=== PATIENT | female | born 1950 | race African-American/Black ===

== ENCOUNTER → 2018-04-12 | Outpatient (CLI) | payer MEDICARE, MEDICAID ==
[~2018-04-12] MED LIST: REGADENOSON 0.4 MG/5 ML IV ONE
== END | disposition home or self-care (01) ==
LOC: NM 08:00
PROVIDERS: ATTEND Internal Medicine Cardiovascular Disease
DX: R06.00 Dyspnea, unspecified (principal); R94.31 Abnormal electrocardiogram [ECG] [EKG]
CPT/HCPCS: 78452; 93017; A9500; J2785

== ENCOUNTER → 2022-04-06 | Outpatient (CLI) | payer MEDICARE, MEDICAID | END | disposition home or self-care (01) | LOC: RAD 08:11 | PROVIDERS: ATTEND Internal Medicine Nephrology | DX: Z01.818 Encounter for other preprocedural examination (principal); M47.814 Spondylosis without myelopathy or radiculopathy, thoracic region | CPT/HCPCS: 71045 ==

== ENCOUNTER 2022-04-15 05:16 | Inpatient (IN) | payer MEDICARE, MEDICAID ==
[~2022-04-15] VITALS: Ht 170.2 cm; Wt 94.4 kg
[2022-04-15] VITALS (57 sets, daily range): BP systolic 110–208; BP diastolic 41–86
[2022-04-15] MEDS ORDERED: LACTATED RINGERS 1,000 ML IV SCH (06:15)
[2022-04-15] MEDS ORDERED: TRANEXAMIC ACID 1,000 MG/10 ML IV NR (06:30)
[2022-04-15] MEDS ORDERED: ROCURONIUM BROMIDE 10MG/ML VIAL 5ML IV ONE ×2 (06:36→10:41)
[2022-04-15] MEDS ORDERED: PHENYLEPHRINE HCL 10 MG/ML 1ML (IV VIAL) IV ONE (06:37)
[2022-04-15] MEDS ORDERED: LIDOCAINE HCL 1% 10 MG/ML 10ML VIAL ONE (06:37)
[2022-04-15] MEDS ORDERED: FENTANYL CITRATE/PF 50MCG/ML 2ML VIAL ONE ×2 (06:37→10:07)
[2022-04-15] MEDS ORDERED: PROPOFOL 200MG/20ML VIAL IV ONE (06:37)
[2022-04-15] MEDS ORDERED: GENTAMICIN SULF 40MG/ML 2ML VIAL ONE ×2 (06:48→09:40)
[2022-04-15] MEDS ORDERED: THROMBIN (BOVINE) 5000 UNITS/VIAL TOP ONE (06:48)
[2022-04-15] MEDS ORDERED: LIDOCAINE HCL/EPINEPHRINE 1%-EPI 1:100,000 20 ML VIAL ONE ×2 (06:48→09:25)
[2022-04-15] MEDS ORDERED: VERA240C3 PO (08:45)
[2022-04-15] MEDS ORDERED: METH2.5T PO (08:45)
[2022-04-15] MEDS ORDERED: CARI250T PO (08:45)
[2022-04-15] MEDS ORDERED: ATOR20TA65 PO (08:45)
[2022-04-15] MEDS ORDERED: PANT40TA51 PO (08:45)
[2022-04-15] MEDS ORDERED: FOLI-43 PO (08:45)
[2022-04-15] MEDS ORDERED: ASPI-1497 PO (08:45)
[2022-04-15] MEDS ORDERED: ZOLP10TA2 PO (08:45)
[2022-04-15] MEDS ORDERED: ADAL40PE SQ (08:45)
[2022-04-15] MEDS ORDERED: FERR325T6 PO (08:45)
[2022-04-15] MEDS ORDERED: GABA800T PO (08:45)
[2022-04-15] MEDS ORDERED: HYDR12.54 PO (08:45)
[2022-04-15] MEDS ORDERED: CHOL500010 PO (08:47)
[2022-04-15] MEDS ORDERED: GLYCOPYRROLATE 0.2 MG/ML 2ML VIAL ONE ×3 (10:27→11:01)
[2022-04-15] MEDS ORDERED: NEOSTIGMINE METHYLSULFATE 1MG/ML 10 ML VIAL ONE (11:00)
[2022-04-15] MEDS: DEXT 5%/LACTATED RINGERS 1,000 ML IV SCH ×2 (11:15→21:05)
[2022-04-15] MEDS ORDERED: HYDRALAZINE 20MG/ML VIAL ONE (11:17)
[2022-04-15] MEDS: MORPHINE SULFATE 4 MG/ML CPJ (NOT FOR IM USE) IV PRN ×4 (11:57→21:38)
[2022-04-15] MEDS: INSULIN LISPRO 100 UNITS/ML SUBCUT SCH ×2 (12:00→17:38)
[2022-04-15] MEDS: NICARDIPINE 100 MG in SODIUM CHLORIDE 0.9% 60 ML IV PRN ×2 (12:07→18:01)
[2022-04-15] MEDS: BLOOD SUGAR DIAGNOSTIC STRIP TEST SCH ×2 (12:38→17:14)
[2022-04-15] MEDS: DEXAMETHASONE 4MG/ML 1ML VIAL IV SCH ×2 (12:38→17:39)
[2022-04-15] MEDS ORDERED: DEXTROSE 50% WATER 50ML SYRINGE IV PRN (12:45)
[2022-04-15] MEDS: CEFAZOLIN 1000MG PREMIX 50 ML IV SCH ×2 (13:43→21:05)
[2022-04-15] MEDS ORDERED: CEFAZOLIN SODIUM 1000MG/VIAL IV SCH (14:00)
[2022-04-15] MEDS: ONDANSETRON HCL 4MG/2ML INJ IV PRN (14:06)
[2022-04-16] VITALS (104 sets, daily range): BP systolic 51–179; BP diastolic 40–74
[2022-04-16] MEDS: BLOOD SUGAR DIAGNOSTIC STRIP TEST SCH ×4 (00:11→18:15)
[2022-04-16] MEDS: MORPHINE SULFATE 4 MG/ML CPJ (NOT FOR IM USE) IV PRN ×3 (00:38→12:05)
[2022-04-16] MEDS: NICARDIPINE 100 MG in SODIUM CHLORIDE 0.9% 60 ML IV PRN ×3 (00:57→19:33)
[2022-04-16] MEDS: DEXAMETHASONE 4MG/ML 1ML VIAL IV SCH ×3 (01:00→13:16)
[2022-04-16] MEDS: CEFAZOLIN 1000MG PREMIX 50 ML IV SCH (06:04)
[2022-04-16] MEDS: INSULIN LISPRO 100 UNITS/ML SUBCUT SCH ×4 (06:40→18:18)
[2022-04-16] MEDS ORDERED: NALOXONE HCL 0.4MG/ML VIAL IV PRN (07:45)
[2022-04-16] MEDS: PANTOPRAZOLE SODIUM 40 MG/VIAL IV SCH (09:38)
[2022-04-16] MEDS: DEXT 5%/LACTATED RINGERS 1,000 ML IV SCH (09:42)
[2022-04-16] MEDS: ONDANSETRON HCL 4MG/2ML INJ IV PRN (09:42)
[2022-04-16] MEDS ORDERED: DIAZEPAM 5 MG TABLET PO NR (10:00)
[2022-04-16 10:37] LABS: BASOPHILS % 0.2 % (0.0-2.0); EOSINOPHILS % 0.2 % (0.0-5.0); HEMATOCRIT. 41.3 % (36.0-48.0); HEMOGLOBIN. 13.2 g/dL (12.0-16.0); LYMPHOCYTES % 10.2 % (20.0-50.0); MEAN CORPUSCULAR HEMOGLOBIN 29.6 pg (28.0-32.0); MEAN CORPUSCULAR VOLUME 92.4 fL (81.0-99.0); MEAN PLATELET VOLUME 8.9 fl (7.4-10.4); MONOCYTES % 2.3 % (2.0-8.0); NEUTROPHILS % 87.1 % (40.0-76.0); PLATELET 277 x1000/uL (130-400); RED BLOOD CELL COUNT 4.47 mill/uL (4.2-5.4)
[2022-04-16 10:45] LABS: CHLORIDE 109 mEq/L (98-107)
[2022-04-16] MEDS ORDERED: MEDICATION NOT ON FORMULARY EA (Hydrochlorothiazide 1 TAB) PO SCH (21:00)
[2022-04-16] MEDS ORDERED: METHOTREXATE SODIUM 2 . 5MG TABLET PO SCH (21:00)
[2022-04-16] MEDS ORDERED: VERAPAMIL HCL PO SCH (21:00)
[2022-04-16] MEDS: ATORVASTATIN CALCIUM 20MG TABLET PO SCH (21:56)
[2022-04-16] MEDS: ZOLPIDEM TARTRATE 5MG TABLET PO PRN (21:56)
[2022-04-17] VITALS (97 sets, daily range): BP systolic 67–190; BP diastolic 34–124
[2022-04-17] MEDS: BLOOD SUGAR DIAGNOSTIC STRIP TEST SCH ×4 (00:07→17:07)
[2022-04-17] MEDS: DILTIAZEM HCL 90MG TABLET PO SCH ×4 (00:13→17:07)
[2022-04-17] MEDS: DEXT 5%/LACTATED RINGERS 1,000 ML IV SCH ×3 (03:15→21:43)
[2022-04-17] MEDS: INSULIN LISPRO 100 UNITS/ML SUBCUT SCH ×4 (06:00→17:08)
[2022-04-17] MEDS: PANTOPRAZOLE 40MG DR TABLET PO SCH (06:46)
[2022-04-17] MEDS: PANTOPRAZOLE SODIUM 40 MG/VIAL IV SCH (08:24)
[2022-04-17] MEDS: FOLIC ACID 1MG TABLET PO SCH (08:24)
[2022-04-17] MEDS: FERROUS SULFATE 325MG TABLET PO SCH (08:24)
[2022-04-17] MEDS: HYDROCHLOROTHIAZIDE 12.5MG CAPSULE PO SCH (08:25)
[2022-04-17] MEDS: GABAPENTIN 400MG CAPSULE PO SCH ×3 (08:25→17:06)
[2022-04-17] MEDS ORDERED: MEDICATION NOT ON FORMULARY EA (Ferrous Sulfate 1 TAB) PO SCH (09:00)
[2022-04-17] MEDS ORDERED: MEDICATION NOT ON FORMULARY EA (Gabapentin (Neurontin) 1 TAB) PO SCH (09:00)
[2022-04-17] MEDS ORDERED: ADALIMUMAB SQ SCH (09:00)
[2022-04-17] MEDS ORDERED: MEDICATION NOT ON FORMULARY EA (Cholecalciferol (Vitamin D3) (Vitamin D3) 1 TAB) PO SCH (09:00)
[2022-04-17] MEDS: NICARDIPINE 100 MG in SODIUM CHLORIDE 0.9% 60 ML IV PRN (09:46)
[2022-04-17] MEDS: CHOLECALCIFEROL (D3) 1000 UNIT TABLET PO SCH (10:17)
[2022-04-17] MEDS: ACETAMINOPHEN 325MG TABLET PO PRN (15:03)
[2022-04-17] MEDS ORDERED: CLONIDINE 0.1MG TABLET PO PRN (16:30)
[2022-04-17] MEDS ORDERED: FUROSEMIDE 40MG/4ML VIAL IVP NR (16:30)
[2022-04-17] MEDS ORDERED: METOPROLOL SUCCINATE 50MG ER TABLET PO SCH (17:00)
[2022-04-17] MEDS: ATORVASTATIN CALCIUM 20MG TABLET PO SCH (21:42)
[2022-04-17] MEDS: ZOLPIDEM TARTRATE 5MG TABLET PO PRN (21:42)
[2022-04-17] MEDS: METOPROLOL TARTRATE 50MG TABLET PO SCH (21:42)
[2022-04-18] VITALS (44 sets, daily range): BP systolic 95–154; BP diastolic 44–87
[2022-04-18] MEDS: IPRATROPIUM BROMIDE (0.02%) 0.5MG/2.5ML NEB HHN SCH ×4 (00:13→20:55)
[2022-04-18] MEDS: ALBUTEROL (0.083%) 2.5MG/3ML NEB HHN SCH ×4 (00:13→20:55)
[2022-04-18] MEDS ORDERED: DEXTROSE 50% WATER 50ML SYRINGE IV PRN (00:30)
[2022-04-18] MEDS: BLOOD SUGAR DIAGNOSTIC STRIP TEST SCH ×4 (06:11→20:34)
[2022-04-18] MEDS: DILTIAZEM HCL 90MG TABLET PO SCH ×4 (06:14→18:05)
[2022-04-18] MEDS: PANTOPRAZOLE 40MG DR TABLET PO SCH (06:14)
[2022-04-18] MEDS: INSULIN LISPRO 100 UNITS/ML SUBCUT SCH ×4 (06:15→21:00)
[2022-04-18] MEDS: CHOLECALCIFEROL (D3) 1000 UNIT TABLET PO SCH (08:02)
[2022-04-18] MEDS: GABAPENTIN 400MG CAPSULE PO SCH ×3 (08:02→18:05)
[2022-04-18] MEDS: FOLIC ACID 1MG TABLET PO SCH (08:02)
[2022-04-18] MEDS: FERROUS SULFATE 325MG TABLET PO SCH (08:02)
[2022-04-18] MEDS: METOPROLOL TARTRATE 50MG TABLET PO SCH ×2 (08:03→20:34)
[2022-04-18] MEDS: HYDROCHLOROTHIAZIDE 12.5MG CAPSULE PO SCH (08:03)
[2022-04-18 14:52] LABS: BASOPHILS % 0.3 % (0.0-2.0); HEMATOCRIT. 38.2 % (36.0-48.0); HEMOGLOBIN. 12.5 g/dL (12.0-16.0); LYMPHOCYTES % 11.1 % (20.0-50.0); MEAN CORPUSCULAR HEMOGLOBIN 29.8 pg (28.0-32.0); MEAN CORPUSCULAR VOLUME 91.1 fL (81.0-99.0); MEAN PLATELET VOLUME 8.4 fl (7.4-10.4); MONOCYTES % 6.1 % (2.0-8.0); NEUTROPHILS % 82.5 % (40.0-76.0); PLATELET 250 x1000/uL (130-400); RED BLOOD CELL COUNT 4.19 mill/uL (4.2-5.4); RED CELL DISTRIBUTION WIDTH 15.1 % (11.6-14.6)
[2022-04-18 15:10] LABS: CHLORIDE 106 mEq/L (98-107)
[2022-04-18] MEDS: ACETAMINOPHEN 325MG TABLET PO PRN (18:06)
[2022-04-18] MEDS ORDERED: FUROSEMIDE 40MG/4ML VIAL IVP NR (19:15)
[2022-04-18] MEDS ORDERED: POTASSIUM CHLORIDE 20MEQ TABLET SR PO NR (19:45)
[2022-04-18] MEDS: ATORVASTATIN CALCIUM 20MG TABLET PO SCH (20:34)
[2022-04-18] MEDS: ZOLPIDEM TARTRATE 5MG TABLET PO PRN (21:04)
[2022-04-19] VITALS: BP 141/63
[2022-04-19] MEDS: DILTIAZEM HCL 90MG TABLET PO SCH ×5 (00:53→20:54)
[2022-04-19 01:10] LABS: BG BASE EXCESS 3.7 mmol/L (-2.0-2.0); BG CARBOXYHEMOGLOBIN 0.2 % (0.5-1.5); BG DEOXYHEMOGLOBIN 5.5 % (0.0-5.0); BG FRACTION INSPIRED OXYGEN 40; BG HCO3 ACT 28.3 mmol/L (22.0-26.0); BG OXYGEN SATURATION 94.5 % (92.0-98.5); BG OXYHEMOGLOBIN 94.3 % (94.0-97.0); BG PCO2 42.6 mmHg (35.0-45.0); BG PO2 72.4 mmHg (75.0-100.0); BG SAMPLE SITE RIGHT RADIAL; BG TOTAL HEMOGLOBIN 12.6 g/dL (12.0-18.0); BG VENT MODE MASK - SIMPLE
[2022-04-19 04:00] VITALS: BP 114/55
[2022-04-19] MEDS: BLOOD SUGAR DIAGNOSTIC STRIP TEST SCH ×4 (06:20→20:44)
[2022-04-19 07:11] LABS: HEMOGLOBIN. 12.1 g/dL (12.0-16.0); MEAN CORPUSCULAR HEMOGLOBIN 29.7 pg (28.0-32.0); MEAN PLATELET VOLUME 8.8 fl (7.4-10.4); PLATELET 223 x1000/uL (130-400); RED BLOOD CELL COUNT 4.07 mill/uL (4.2-5.4); RED CELL DISTRIBUTION WIDTH 14.8 % (11.6-14.6)
[2022-04-19 08:00] VITALS: BP 121/59
[2022-04-19 08:02] LABS: CHLORIDE 107 mEq/L (98-107)
[2022-04-19] MEDS: INSULIN LISPRO 100 UNITS/ML SUBCUT SCH ×4 (08:10→20:44)
[2022-04-19] MEDS: ALBUTEROL (0.083%) 2.5MG/3ML NEB HHN SCH ×3 (08:18→21:07)
[2022-04-19] MEDS: IPRATROPIUM BROMIDE (0.02%) 0.5MG/2.5ML NEB HHN SCH ×3 (08:18→21:07)
[2022-04-19] MEDS ORDERED: METHOTREXATE SODIUM 2 . 5MG TABLET PO SCH (09:00)
[2022-04-19] MEDS: FOLIC ACID 1MG TABLET PO SCH (10:17)
[2022-04-19] MEDS: FUROSEMIDE 40MG/4ML VIAL IVP SCH (10:17)
[2022-04-19] MEDS: CHOLECALCIFEROL (D3) 1000 UNIT TABLET PO SCH (10:18)
[2022-04-19] MEDS: GABAPENTIN 400MG CAPSULE PO SCH ×3 (10:18→17:31)
[2022-04-19] MEDS: METOPROLOL TARTRATE 50MG TABLET PO SCH ×2 (10:18→20:54)
[2022-04-19] MEDS: PANTOPRAZOLE 40MG DR TABLET PO SCH (10:20)
[2022-04-19 12:00] VITALS: BP 107/41
[2022-04-19 13:56] LABS: PLATELET ESTIMATE NORMAL
[2022-04-19 16:00] VITALS: BP_SYST 124; BP_SYST 94; BP_DIAS 49; BP_DIAS 56
[2022-04-19 20:00] VITALS: BP 120/56
[2022-04-19] MEDS: ATORVASTATIN CALCIUM 20MG TABLET PO SCH (20:54)
[2022-04-19] MEDS: ZOLPIDEM TARTRATE 5MG TABLET PO PRN (20:59)
[2022-04-20] VITALS: BP 120/60
[2022-04-20] MEDS: ALBUTEROL (0.083%) 2.5MG/3ML NEB HHN SCH ×4 (01:18→20:52)
[2022-04-20] MEDS: IPRATROPIUM BROMIDE (0.02%) 0.5MG/2.5ML NEB HHN SCH ×4 (01:18→20:53)
[2022-04-20 04:00] VITALS: BP 132/66
[2022-04-20] MEDS: DILTIAZEM HCL 90MG TABLET PO SCH ×3 (05:32→21:43)
[2022-04-20] MEDS: PANTOPRAZOLE 40MG DR TABLET PO SCH (06:28)
[2022-04-20] MEDS: INSULIN LISPRO 100 UNITS/ML SUBCUT SCH ×4 (06:32→21:46)
[2022-04-20] MEDS: BLOOD SUGAR DIAGNOSTIC STRIP TEST SCH ×4 (06:32→20:33)
[2022-04-20 08:18] VITALS: BP 116/54
[2022-04-20] MEDS: METOPROLOL TARTRATE 50MG TABLET PO SCH ×2 (09:00→21:43)
[2022-04-20] MEDS: FUROSEMIDE 40MG/4ML VIAL IVP SCH (09:20)
[2022-04-20] MEDS: GABAPENTIN 400MG CAPSULE PO SCH ×3 (09:25→17:15)
[2022-04-20] MEDS: FOLIC ACID 1MG TABLET PO SCH (09:25)
[2022-04-20] MEDS: CHOLECALCIFEROL (D3) 1000 UNIT TABLET PO SCH (09:26)
[2022-04-20 12:14] VITALS: BP 112/56
[2022-04-20 16:03] VITALS: BP 137/65
[2022-04-20] MEDS: LACTULOSE 20G/30ML UDC PO SCH ×2 (17:15→21:42)
[2022-04-20] MEDS: ATORVASTATIN CALCIUM 20MG TABLET PO SCH (21:42)
[2022-04-20] MEDS: ZOLPIDEM TARTRATE 5MG TABLET PO PRN (21:51)
[2022-04-20] MEDS: ACETAMINOPHEN 325MG TABLET PO PRN (21:52)
[2022-05-03] MEDS ORDERED: ADALIMUMAB SQ SCH (09:00)
== END 2022-04-20 22:03 | DRG 471 ==
LOC: OR 05:16 → MICUSO 05:17 → 7WST 04-18 10:45
PROVIDERS: ADMIT Neurological Surgery; ATTEND Neurological Surgery
PROC: 0RG10A0 Fusion of Cervical Vertebral Joint with Interbody Fusion Device, Anterior Approach, Anterior Column, Open Approach (ICD-10-PCS; principal; 2022-04-15)
PROC: 0RB30ZZ Excision of Cervical Vertebral Disc, Open Approach (ICD-10-PCS; 2022-04-15)
PROC: 01N10ZZ Release Cervical Nerve, Open Approach (ICD-10-PCS; 2022-04-15)
PROC: 4A11X4G Monitoring of Peripheral Nervous Electrical Activity, Intraoperative, External Approach (ICD-10-PCS; 2022-04-15)
DX: M48.02 Spinal stenosis, cervical region (principal); G82.50 Quadriplegia, unspecified; J96.01 Acute respiratory failure with hypoxia; M50.021 Cervical disc disorder at C4-C5 level with myelopathy; M47.12 Other spondylosis with myelopathy, cervical region; J81.1 Chronic pulmonary edema; K44.9 Diaphragmatic hernia without obstruction or gangrene; M06.9 Rheumatoid arthritis, unspecified; Z20.822 Contact with and (suspected) exposure to COVID-19; I10 Essential (primary) hypertension; E78.5 Hyperlipidemia, unspecified; E11.65 Type 2 diabetes mellitus with hyperglycemia; R26.89 Other abnormalities of gait and mobility; M47.22 Other spondylosis with radiculopathy, cervical region; R13.10 Dysphagia, unspecified; E11.42 Type 2 diabetes mellitus with diabetic polyneuropathy; E87.70 Fluid overload, unspecified; I16.0 Hypertensive urgency; E66.9 Obesity, unspecified; Z79.4 Long term (current) use of insulin; Z82.49 Family history of ischemic heart disease and other diseases of the circulatory system; Z68.32 Body mass index [BMI] 32.0-32.9, adult
CPT/HCPCS: 36415; 36600; 71045; 72040; 72141; 76000; 80048; 82375; 82805; 82962; 83036; 83880; 85025; 86850; 86900; 87426; 88304; 88311; 92610; 94640; 95925; 95926; 95928; 95929; 97116; 97162; 97166; 97530; C9113; C9803; J0360; J0690; J1100; J1580; J1815; J1940; J2270; J2370; J2405; J2704; J2710; J3010; J3490; J7050; J7121; J8610; L0172; L3908; C1713

== ENCOUNTER 2022-04-20 22:00 | Inpatient (IN) | payer MEDICARE, MEDICAID ==
[~2022-04-20] VITALS: Ht 170.2 cm; Wt 94.4 kg
[2022-04-20 20:00] VITALS: BP 143/80
[2022-04-20 22:00] VITALS: BP 143/80
[~2022-04-20 22:00] MED LIST changes: +ADAL40PE SQ; +ASPI-1497 PO; +ATOR20TA65 PO; +CARI250T PO; +CHOL500010 PO; +FERR325T6 PO; +FOLI-43 PO; +GABA800T PO; +HYDR12.54 PO; +METH2.5T PO; +PANT40TA51 PO; -REGADENOSON 0.4 MG/5 ML IV ONE; +VERA240C3 PO; +ZOLP10TA2 PO
[2022-04-20] MEDS ORDERED: DEXTROSE 50% WATER 50ML SYRINGE IV PRN (22:45)
[2022-04-20] MEDS ORDERED: CLONIDINE 0.1MG TABLET PO PRN (23:15)
[2022-04-20] MEDS ORDERED: NALOXONE HCL 0.4 MG/ML 1ML VIAL IV PRN (23:15)
[2022-04-20] MEDS ORDERED: ACETAMINOPHEN 325MG TABLET PO PRN (23:15)
[2022-04-20] MEDS ORDERED: ONDANSETRON HCL 4MG/2ML INJ IV PRN (23:15)
[2022-04-21] MEDS: ALBUTEROL (0.083%) 2.5MG/3ML NEB HHN SCH ×2 (01:35→14:06)
[2022-04-21] MEDS: IPRATROPIUM BROMIDE (0.02%) 0.5MG/2.5ML NEB HHN SCH ×2 (01:35→14:05)
[2022-04-21 03:08] LABS: CLARITY URINE CLEAR (CLEAR); COLOR URINE YELLOW (YELLOW); KETONES URINE NEGATIVE (NEGATIVE); LEUKOCYTE ESTERASE URINE NEGATIVE (NEGATIVE); NITRITE URINE NEGATIVE (NEGATIVE); OCCULT BLOOD URINE 1+ (NEGATIVE); PROTEIN URINE NEGATIVE (NEGATIVE); SPECIFIC GRAVITY URINE 1.009 (1.005-1.030); UROBILINOGEN URINE 0.2 E.U./dL (0.2-1.0)
[2022-04-21] MEDS ORDERED: BLOOD SUGAR DIAGNOSTIC STRIP TEST SCH (06:30)
[2022-04-21] MEDS: PANTOPRAZOLE 40MG DR TABLET PO SCH (06:38)
[2022-04-21] MEDS: DILTIAZEM HCL 90MG TABLET PO SCH ×3 (06:38→22:28)
[2022-04-21 07:02] LABS: BASOPHILS % 0.4 % (0.0-2.0); EOSINOPHILS % 0.7 % (0.0-5.0); HEMATOCRIT. 38.7 % (36.0-48.0); HEMOGLOBIN. 12.9 g/dL (12.0-16.0); LYMPHOCYTES % 24.5 % (20.0-50.0); MEAN CORPUSCULAR HEMOGLOBIN 30.4 pg (28.0-32.0); MEAN CORPUSCULAR VOLUME 91.1 fL (81.0-99.0); MEAN PLATELET VOLUME 8.6 fl (7.4-10.4); MONOCYTES % 8.9 % (2.0-8.0); NEUTROPHILS % 65.5 % (40.0-76.0); PLATELET 240 x1000/uL (130-400); RED BLOOD CELL COUNT 4.24 mill/uL (4.2-5.4); RED CELL DISTRIBUTION WIDTH 14.3 % (11.6-14.6)
[2022-04-21 08:00] VITALS: BP 126/74
[2022-04-21] MEDS: FOLIC ACID 1MG TABLET PO SCH (08:19)
[2022-04-21] MEDS: METOPROLOL TARTRATE 25MG TABLET PO SCH ×2 (08:26→22:28)
[2022-04-21] MEDS: CHOLECALCIFEROL (D3) 1000 UNIT TABLET PO SCH (08:27)
[2022-04-21] MEDS ORDERED: GABAPENTIN 300MG CAPSULE PO SCH (09:00)
[2022-04-21] MEDS ORDERED: INSULIN LISPRO 100 UNITS/ML SUBCUT SCH (09:00)
[2022-04-21] MEDS ORDERED: GABAPENTIN 100MG CAPSULE PO NR (09:00)
[2022-04-21] MEDS ORDERED: FUROSEMIDE 40MG/4ML VIAL IVP SCH (09:00)
[2022-04-21 09:54] LABS: CHLORIDE 105 mEq/L (98-107)
[2022-04-21] MEDS: GABAPENTIN 400MG CAPSULE PO SCH ×2 (13:01→18:50)
[2022-04-21] MEDS: HYDROCODONE/ACETAMINOPHEN 5/325MG TABLET PO PRN (13:02)
[2022-04-21] MEDS ORDERED: POTASSIUM CHLORIDE 20MEQ TABLET SR PO NR (15:15)
[2022-04-21] MEDS ORDERED: ALBUTEROL (0.083%) 2.5MG/3ML NEB HHN PRN (16:15)
[2022-04-21] MEDS ORDERED: IPRATROPIUM BROMIDE (0.02%) 0.5MG/2.5ML NEB HHN PRN (16:15)
[2022-04-21 20:00] VITALS: BP 138/75
[2022-04-21] MEDS: POTASSIUM CHLORIDE 10MEQ TABLET SR PO SCH (22:27)
[2022-04-21] MEDS: ATORVASTATIN CALCIUM 20MG TABLET PO SCH (22:29)
[2022-04-22] MEDS: HYDROCODONE/ACETAMINOPHEN 5/325MG TABLET PO PRN ×3 (02:31→15:55)
[2022-04-22] MEDS: DILTIAZEM HCL 90MG TABLET PO SCH ×3 (06:44→22:00)
[2022-04-22] MEDS: PANTOPRAZOLE 40MG DR TABLET PO SCH (06:44)
[2022-04-22 06:58] LABS: BASOPHILS % 0.1 % (0.0-2.0); EOSINOPHILS % 1.4 % (0.0-5.0); HEMATOCRIT. 37.9 % (36.0-48.0); HEMOGLOBIN. 12.4 g/dL (12.0-16.0); LYMPHOCYTES % 31.5 % (20.0-50.0); MEAN CORPUSCULAR HEMOGLOBIN 29.8 pg (28.0-32.0); MEAN CORPUSCULAR VOLUME 91.2 fL (81.0-99.0); MEAN PLATELET VOLUME 8.7 fl (7.4-10.4); MONOCYTES % 8.8 % (2.0-8.0); NEUTROPHILS % 58.2 % (40.0-76.0); PLATELET 264 x1000/uL (130-400); RED BLOOD CELL COUNT 4.15 mill/uL (4.2-5.4); RED CELL DISTRIBUTION WIDTH 14.8 % (11.6-14.6)
[2022-04-22 08:00] VITALS: BP 128/62
[2022-04-22 08:31] LABS: CHLORIDE 105 mEq/L (98-107)
[2022-04-22] MEDS: FOLIC ACID 1MG TABLET PO SCH (09:20)
[2022-04-22] MEDS: GABAPENTIN 400MG CAPSULE PO SCH ×3 (09:20→17:47)
[2022-04-22] MEDS: POTASSIUM CHLORIDE 10MEQ TABLET SR PO SCH (09:20)
[2022-04-22] MEDS: CHOLECALCIFEROL (D3) 1000 UNIT TABLET PO SCH (09:21)
[2022-04-22] MEDS: METOPROLOL TARTRATE 25MG TABLET PO SCH ×2 (09:21→21:00)
[2022-04-22 10:23] LABS: FOLIC ACID (FOLATE) SERUM 18.2 ng/mL (>5.38)
[2022-04-22] MEDS: LACTULOSE 20G/30ML UDC PO SCH ×2 (17:47→22:00)
[2022-04-22 20:14] VITALS: BP 154/75
[2022-04-22] MEDS: ATORVASTATIN CALCIUM 20MG TABLET PO SCH (21:00)
[2022-04-23] MEDS: DILTIAZEM HCL 90MG TABLET PO SCH (06:27)
[2022-04-23 08:00] VITALS: BP 142/68
[2022-04-23] MEDS: GABAPENTIN 400MG CAPSULE PO SCH ×3 (09:40→17:47)
[2022-04-23] MEDS: FOLIC ACID 1MG TABLET PO SCH (09:40)
[2022-04-23] MEDS: FAMOTIDINE 20MG TABLET PO SCH ×2 (09:41→20:50)
[2022-04-23] MEDS: CHOLECALCIFEROL (D3) 1000 UNIT TABLET PO SCH (09:41)
[2022-04-23] MEDS: METOPROLOL TARTRATE 25MG TABLET PO SCH ×2 (09:42→20:50)
[2022-04-23] MEDS: DILTIAZEM HCL 90MG CAPSULE SR 12HR PO SCH (17:48)
[2022-04-23] MEDS: HYDROCODONE/ACETAMINOPHEN 5/325MG TABLET PO PRN (17:53)
[2022-04-23 20:00] VITALS: BP 152/69
[2022-04-23] MEDS: ZOLPIDEM TARTRATE 5MG TABLET PO PRN (20:50)
[2022-04-23] MEDS: ATORVASTATIN CALCIUM 20MG TABLET PO SCH (20:50)
[2022-04-24 08:00] VITALS: BP 152/62
[2022-04-24] MEDS: DILTIAZEM HCL 90MG CAPSULE SR 12HR PO SCH ×2 (11:50→19:46)
[2022-04-24] MEDS: CHOLECALCIFEROL (D3) 1000 UNIT TABLET PO SCH (11:51)
[2022-04-24] MEDS: METOPROLOL TARTRATE 25MG TABLET PO SCH (11:51)
[2022-04-24] MEDS: GABAPENTIN 400MG CAPSULE PO SCH ×3 (11:53→19:46)
[2022-04-24] MEDS: FAMOTIDINE 20MG TABLET PO SCH ×2 (11:53→21:51)
[2022-04-24] MEDS: FOLIC ACID 1MG TABLET PO SCH (11:54)
[2022-04-24] MEDS: LOSARTAN POTASSIUM 50 MG TABLET PO SCH ×2 (13:00→21:43)
[2022-04-24] MEDS: HYDROCODONE/ACETAMINOPHEN 5/325MG TABLET PO PRN (19:51)
[2022-04-24 20:34] VITALS: BP 174/73
[2022-04-24] MEDS: ATORVASTATIN CALCIUM 20MG TABLET PO SCH (21:43)
[2022-04-24] MEDS: ZOLPIDEM TARTRATE 5MG TABLET PO PRN (21:52)
[2022-04-25 07:58] LABS: MEAN PLATELET VOLUME 8.6 fl (7.4-10.4)
[2022-04-25 08:00] VITALS: BP 147/71
[2022-04-25 08:00] LABS: BASOPHILS % 0.1 % (0.0-2.0); EOSINOPHILS % 0.6 % (0.0-5.0); HEMATOCRIT. 36.1 % (36.0-48.0); HEMOGLOBIN. 11.8 g/dL (12.0-16.0); LYMPHOCYTES % 32.9 % (20.0-50.0); MEAN CORPUSCULAR HEMOGLOBIN 29.7 pg (28.0-32.0); MEAN CORPUSCULAR VOLUME 91.5 fL (81.0-99.0); NEUTROPHILS % 56.4 % (40.0-76.0); PLATELET 307 x1000/uL (130-400); RED BLOOD CELL COUNT 3.95 mill/uL (4.2-5.4); RED CELL DISTRIBUTION WIDTH 14.9 % (11.6-14.6)
[2022-04-25] MEDS: FAMOTIDINE 20MG TABLET PO SCH ×2 (09:40→21:47)
[2022-04-25] MEDS: CHOLECALCIFEROL (D3) 1000 UNIT TABLET PO SCH (09:40)
[2022-04-25] MEDS: GABAPENTIN 400MG CAPSULE PO SCH ×3 (09:40→17:49)
[2022-04-25] MEDS: FOLIC ACID 1MG TABLET PO SCH (09:40)
[2022-04-25] MEDS: DILTIAZEM HCL 90MG CAPSULE SR 12HR PO SCH ×2 (09:41→17:00)
[2022-04-25] MEDS: LOSARTAN POTASSIUM 50 MG TABLET PO SCH ×2 (09:43→17:00)
[2022-04-25 14:26] LABS: CHLORIDE 110 mEq/L (98-107)
[2022-04-25] MEDS: HYDROCODONE/ACETAMINOPHEN 5/325MG TABLET PO PRN (14:31)
[2022-04-25 20:00] VITALS: BP 128/71
[2022-04-25] MEDS: ATORVASTATIN CALCIUM 20MG TABLET PO SCH (21:47)
[2022-04-25] MEDS: ZOLPIDEM TARTRATE 5MG TABLET PO PRN (21:48)
[2022-04-26 08:00] VITALS: BP 139/58
[2022-04-26] MEDS ORDERED: METHOTREXATE SODIUM 2 . 5MG TABLET PO SCH (09:00)
[2022-04-26] MEDS: CHOLECALCIFEROL (D3) 1000 UNIT TABLET PO SCH (09:18)
[2022-04-26] MEDS: LOSARTAN POTASSIUM 50 MG TABLET PO SCH ×2 (09:18→18:09)
[2022-04-26] MEDS: DILTIAZEM HCL 90MG CAPSULE SR 12HR PO SCH ×2 (09:19→18:09)
[2022-04-26] MEDS: FAMOTIDINE 20MG TABLET PO SCH ×2 (09:19→20:45)
[2022-04-26] MEDS: GABAPENTIN 400MG CAPSULE PO SCH ×3 (09:19→18:09)
[2022-04-26] MEDS: FOLIC ACID 1MG TABLET PO SCH (09:19)
[2022-04-26] MEDS: HYDROCODONE/ACETAMINOPHEN 5/325MG TABLET PO PRN (09:28)
[2022-04-26 20:00] VITALS: BP 146/70
[2022-04-26] MEDS: ATORVASTATIN CALCIUM 20MG TABLET PO SCH (20:45)
[2022-04-26] MEDS ORDERED: NALOXONE HCL 0.4MG/ML VIAL IV PRN (21:00)
[2022-04-26] MEDS: ZOLPIDEM TARTRATE 5MG TABLET PO PRN (22:04)
[2022-04-27 07:52] VITALS: BP 150/78
[2022-04-27] MEDS: GABAPENTIN 400MG CAPSULE PO SCH ×3 (08:55→17:50)
[2022-04-27] MEDS: CHOLECALCIFEROL (D3) 1000 UNIT TABLET PO SCH (08:55)
[2022-04-27] MEDS: LOSARTAN POTASSIUM 50 MG TABLET PO SCH ×2 (08:55→17:50)
[2022-04-27] MEDS: DILTIAZEM HCL 90MG CAPSULE SR 12HR PO SCH ×2 (08:56→17:50)
[2022-04-27] MEDS: FOLIC ACID 1MG TABLET PO SCH (08:57)
[2022-04-27] MEDS: FAMOTIDINE 20MG TABLET PO SCH ×2 (08:57→22:34)
[2022-04-27] MEDS: HYDROCODONE/ACETAMINOPHEN 5/325MG TABLET PO PRN (15:41)
[2022-04-27 20:04] VITALS: BP 152/72
[2022-04-27] MEDS: ZOLPIDEM TARTRATE 5MG TABLET PO PRN (22:34)
[2022-04-27] MEDS: ATORVASTATIN CALCIUM 20MG TABLET PO SCH (22:35)
[2022-04-28 08:00] VITALS: BP 142/64
[2022-04-28] MEDS: DILTIAZEM HCL 90MG CAPSULE SR 12HR PO SCH (10:25)
[2022-04-28] MEDS: CHOLECALCIFEROL (D3) 1000 UNIT TABLET PO SCH (10:25)
[2022-04-28] MEDS: GABAPENTIN 400MG CAPSULE PO SCH ×3 (10:26→18:01)
[2022-04-28] MEDS: LOSARTAN POTASSIUM 50 MG TABLET PO SCH ×2 (10:26→17:55)
[2022-04-28] MEDS: FOLIC ACID 1MG TABLET PO SCH (10:26)
[2022-04-28] MEDS: FAMOTIDINE 20MG TABLET PO SCH ×2 (10:26→22:11)
[2022-04-28] MEDS: HYDROCODONE/ACETAMINOPHEN 5/325MG TABLET PO PRN (13:28)
[2022-04-28] MEDS ORDERED: IPRATROPIUM/ALBUTEROL 0.5-3(2.5)MG/3ML NEB HHN PRN (14:00)
[2022-04-28] MEDS ORDERED: IPRATROPIUM BROMIDE (0.02%) 0.5MG/2.5ML NEB HHN PRN (14:00)
[2022-04-28] MEDS ORDERED: ALBUTEROL (0.083%) 2.5MG/3ML NEB HHN PRN (14:00)
[2022-04-28] MEDS: PREDNISOLONE ACETATE 1% OPHTH DROPS 5ML BOTHEYE SCH ×2 (17:58→18:00)
[2022-04-28] MEDS: POLYVINYL ALCOHOL OPHTH DROPS 15ML BOTHEYE SCH (18:00)
[2022-04-28 20:00] VITALS: BP 140/62
[2022-04-28] MEDS: ATORVASTATIN CALCIUM 20MG TABLET PO SCH (22:11)
[2022-04-28] MEDS: ZOLPIDEM TARTRATE 5MG TABLET PO PRN (22:11)
[2022-04-29] MEDS: DILTIAZEM HCL 120MG CAPSULE ER 24HR PO SCH ×3 (06:20→21:38)
[2022-04-29] MEDS: PREDNISOLONE ACETATE 1% OPHTH DROPS 5ML BOTHEYE SCH ×4 (06:21→18:00)
[2022-04-29] MEDS: POLYVINYL ALCOHOL OPHTH DROPS 15ML BOTHEYE SCH ×4 (06:22→18:00)
[2022-04-29 08:00] VITALS: BP 159/64
[2022-04-29] MEDS: FOLIC ACID 1MG TABLET PO SCH (09:23)
[2022-04-29] MEDS: FAMOTIDINE 20MG TABLET PO SCH ×2 (09:23→21:38)
[2022-04-29] MEDS: GABAPENTIN 400MG CAPSULE PO SCH ×3 (09:24→18:30)
[2022-04-29] MEDS: CHOLECALCIFEROL (D3) 1000 UNIT TABLET PO SCH (09:24)
[2022-04-29] MEDS: LOSARTAN POTASSIUM 50 MG TABLET PO SCH ×2 (09:24→18:30)
[2022-04-29] MEDS: HYDROCODONE/ACETAMINOPHEN 5/325MG TABLET PO PRN (15:35)
[2022-04-29 20:45] VITALS: BP 153/54
[2022-04-29] MEDS: ATORVASTATIN CALCIUM 20MG TABLET PO SCH (21:38)
[2022-04-30] MEDS: POLYVINYL ALCOHOL OPHTH DROPS 15ML BOTHEYE SCH ×4 (06:00→17:54)
[2022-04-30] MEDS: PREDNISOLONE ACETATE 1% OPHTH DROPS 5ML BOTHEYE SCH ×4 (06:00→17:54)
[2022-04-30 08:00] VITALS: BP 159/66
[2022-04-30] MEDS: GABAPENTIN 400MG CAPSULE PO SCH ×3 (09:16→17:21)
[2022-04-30] MEDS: FOLIC ACID 1MG TABLET PO SCH (09:16)
[2022-04-30] MEDS: LOSARTAN POTASSIUM 50 MG TABLET PO SCH ×2 (09:16→17:21)
[2022-04-30] MEDS: FAMOTIDINE 20MG TABLET PO SCH ×2 (09:16→21:19)
[2022-04-30] MEDS: CHOLECALCIFEROL (D3) 1000 UNIT TABLET PO SCH (09:17)
[2022-04-30] MEDS: DILTIAZEM HCL 120MG CAPSULE ER 24HR PO SCH ×2 (09:17→21:20)
[2022-04-30] MEDS: HYDROCODONE/ACETAMINOPHEN 5/325MG TABLET PO PRN (16:14)
[2022-04-30 20:21] VITALS: BP 158/54
[2022-04-30] MEDS: ATORVASTATIN CALCIUM 20MG TABLET PO SCH (21:19)
[2022-04-30] MEDS: ZOLPIDEM TARTRATE 5MG TABLET PO PRN (22:04)
[2022-05-01] MEDS: POLYVINYL ALCOHOL OPHTH DROPS 15ML BOTHEYE SCH ×3 (00:32→12:00)
[2022-05-01] MEDS: PREDNISOLONE ACETATE 1% OPHTH DROPS 5ML BOTHEYE SCH ×3 (00:32→13:31)
[2022-05-01 06:46] LABS: BASOPHILS % 0.4 % (0.0-2.0); EOSINOPHILS % 0.5 % (0.0-5.0); HEMATOCRIT. 36.6 % (36.0-48.0); HEMOGLOBIN. 11.8 g/dL (12.0-16.0); LYMPHOCYTES % 27.4 % (20.0-50.0); MEAN CORPUSCULAR VOLUME 93.2 fL (81.0-99.0); MEAN PLATELET VOLUME 8.5 fl (7.4-10.4); MONOCYTES % 8.4 % (2.0-8.0); NEUTROPHILS % 63.3 % (40.0-76.0); PLATELET 302 x1000/uL (130-400); RED BLOOD CELL COUNT 3.93 mill/uL (4.2-5.4); RED CELL DISTRIBUTION WIDTH 14.8 % (11.6-14.6)
[2022-05-01 07:30] LABS: CHLORIDE 110 mEq/L (98-107)
[2022-05-01 07:35] LABS: PHOSPHORUS 3.7 mg/dL (2.5-4.9)
[2022-05-01 07:59] VITALS: BP 119/59
[2022-05-01] MEDS: CHOLECALCIFEROL (D3) 1000 UNIT TABLET PO SCH (10:01)
[2022-05-01] MEDS: FAMOTIDINE 20MG TABLET PO SCH ×2 (10:02→21:16)
[2022-05-01] MEDS: DILTIAZEM HCL 120MG CAPSULE ER 24HR PO SCH ×2 (10:02→21:18)
[2022-05-01] MEDS: FOLIC ACID 1MG TABLET PO SCH (10:02)
[2022-05-01] MEDS: GABAPENTIN 400MG CAPSULE PO SCH ×2 (10:03→13:31)
[2022-05-01] MEDS: LOSARTAN POTASSIUM 50 MG TABLET PO SCH (10:03)
[2022-05-01] MEDS: HYDROCODONE/ACETAMINOPHEN 5/325MG TABLET PO PRN (15:01)
[2022-05-01 20:07] VITALS: BP 152/50
[2022-05-01] MEDS: ATORVASTATIN CALCIUM 20MG TABLET PO SCH (21:16)
[2022-05-01] MEDS: ZOLPIDEM TARTRATE 5MG TABLET PO PRN (21:38)
[2022-05-02] MEDS: PREDNISOLONE ACETATE 1% OPHTH DROPS 5ML BOTHEYE SCH ×3 (06:00→13:02)
[2022-05-02] MEDS: POLYVINYL ALCOHOL OPHTH DROPS 15ML BOTHEYE SCH ×3 (06:00→13:02)
[2022-05-02 08:00] VITALS: BP 127/68
[2022-05-02] MEDS: FOLIC ACID 1MG TABLET PO SCH (08:57)
[2022-05-02] MEDS: DILTIAZEM HCL 120MG CAPSULE ER 24HR PO SCH (08:57)
[2022-05-02] MEDS: FAMOTIDINE 20MG TABLET PO SCH (08:57)
[2022-05-02] MEDS: CHOLECALCIFEROL (D3) 1000 UNIT TABLET PO SCH (08:57)
[2022-05-02] MEDS: LOSARTAN POTASSIUM 50 MG TABLET PO SCH (08:58)
[2022-05-02] MEDS: GABAPENTIN 400MG CAPSULE PO SCH ×2 (08:58→13:02)
[2022-05-02 12:09] VITALS: BP 127/68
[2022-05-02] MEDS ORDERED: METH2.5T PO (12:28)
[2022-05-02] MEDS ORDERED: NALOXONE HCL 0.4MG/ML VIAL IV PRN (15:00)
== END 2022-05-02 15:25 | disposition home health service (06) | DRG 551 ==
PROVIDERS: ADMIT Physical Medicine & Rehabilitation Spinal Cord Injury Medicine; ATTEND Internal Medicine Nephrology
DX: M48.02 Spinal stenosis, cervical region (principal); G82.50 Quadriplegia, unspecified; J96.01 Acute respiratory failure with hypoxia; J81.1 Chronic pulmonary edema; F33.1 Major depressive disorder, recurrent, moderate; M06.9 Rheumatoid arthritis, unspecified; M21.371 Foot drop, right foot; K59.00 Constipation, unspecified; K44.9 Diaphragmatic hernia without obstruction or gangrene; I16.0 Hypertensive urgency; I10 Essential (primary) hypertension; F41.1 Generalized anxiety disorder; E11.65 Type 2 diabetes mellitus with hyperglycemia; E66.9 Obesity, unspecified; R26.89 Other abnormalities of gait and mobility; R53.81 Other malaise; M47.812 Spondylosis without myelopathy or radiculopathy, cervical region; E78.00 Pure hypercholesterolemia, unspecified; E87.6 Hypokalemia; E87.70 Fluid overload, unspecified; M50.10 Cervical disc disorder with radiculopathy, unspecified cervical region; R13.10 Dysphagia, unspecified; R26.81 Unsteadiness on feet; Z60.2 Problems related to living alone; Z79.899 Other long term (current) drug therapy; Z82.49 Family history of ischemic heart disease and other diseases of the circulatory system; Z91.81 History of falling; Z68.32 Body mass index [BMI] 32.0-32.9, adult
CPT/HCPCS: 36415; 71045; 80048; 80053; 81003; 82607; 82746; 83036; 83735; 84100; 84134; 84443; 85025; 92610; 93970; 94640; 97110; 97112; 97116; 97150; 97162; 97166; 97530; 97535; A6261; J1940; J8610; L0172

== ENCOUNTER 2022-10-31 23:10 | Inpatient (IN) | payer MEDICARE, MEDICAID ==
[~2022-10-31] VITALS: Ht 170.2 cm; Wt 75.0 kg
[2022-10-31 23:30] VITALS: BP 120/52; PULSE 65; RESP 18; TEMP 97.6
[2022-11-01] MEDS ORDERED: CEFTRIAXONE 1GM PREMIX 50 ML IV SCH (02:15)
[2022-11-01] MEDS ORDERED: MORPHINE SULFATE 2 MG/ML CPJ (NOT FOR IM USE) IV PRN (02:15)
[2022-11-01] MEDS ORDERED: NALOXONE HCL 0.4 MG/ML 1ML VIAL IV PRN (02:30)
[2022-11-01] MEDS ORDERED: ONDANSETRON HCL 4MG/2ML INJ IV PRN (02:30)
[2022-11-01] MEDS ORDERED: CLONIDINE 0.1MG TABLET PO PRN (02:30)
[2022-11-01] MEDS: CARISOPRODOL 350 MG TABLET PO SCH ×3 (03:00→17:09)
[2022-11-01] MEDS: HYDROCODONE/ACETAMINOPHEN 10/325MG TABLET PO PRN ×2 (03:49→14:13)
[2022-11-01] MEDS: GABAPENTIN 300MG CAPSULE PO SCH ×3 (06:00→22:00)
[2022-11-01] MEDS: VERAPAMIL HCL 80 MG TABLET PO SCH ×3 (06:00→22:00)
[2022-11-01] MEDS: CEFTRIAXONE 1,000 MG in DEXTROSE 5% WATER 50 ML IV SCH (06:26)
[2022-11-01 08:00] VITALS: BP 128/60; PULSE 76; RESP 18; TEMP 97.9
[2022-11-01] MEDS: ENOXAPARIN 40MG/0.4ML SYR SUBCUT SCH (09:38)
[2022-11-01] MEDS: FERROUS SULFATE 325MG TABLET PO SCH ×3 (09:39→16:31)
[2022-11-01] MEDS: ASPIRIN 81MG EC TABLET PO SCH (09:39)
[2022-11-01] MEDS: DOCUSATE SODIUM 100MG CAPSULE PO SCH ×2 (09:39→16:32)
[2022-11-01] MEDS: POLYETHYLENE GLYCOL 3350 (17GM) 1 DOSE PACK PO SCH (09:39)
[2022-11-01] MEDS: FOLIC ACID 1MG TABLET PO SCH (09:39)
[2022-11-01] MEDS ORDERED: BISACODYL 10MG SUPP PR NR (11:45)
[2022-11-01] MEDS: LACTULOSE 20G/30ML UDC PO SCH ×2 (11:57→14:15)
[2022-11-01] MEDS: DICLOFENAC SODIUM 1% GEL 50GM TOP SCH ×3 (14:08→21:50)
[2022-11-01 20:00] VITALS: BP 119/48; PULSE 68; RESP 18; TEMP 98.1
[2022-11-01 20:30] LABS: BASOPHILS % 0.5 % (0.0-2.0); EOSINOPHILS % 1.3 % (0.0-5.0); HEMOGLOBIN. 11.9 g/dL (12.0-16.0); LYMPHOCYTES % 46.5 % (20.0-50.0); MEAN CORPUSCULAR HEMOGLOBIN 27.8 pg (28.0-32.0); MEAN CORPUSCULAR HGB CONC 32.2 g/dL (31.0-37.0); MEAN CORPUSCULAR VOLUME 86.3 fL (81.0-99.0); MEAN PLATELET VOLUME 9.4 fl (7.4-10.4); MONOCYTES % 7.1 % (2.0-8.0); NEUTROPHILS % 44.6 % (40.0-76.0); PLATELET 223 x1000/uL (130-400); RED BLOOD CELL COUNT 4.29 mill/uL (4.2-5.4); RED CELL DISTRIBUTION WIDTH 15.2 % (11.6-14.6)
[2022-11-01 20:39] LABS: CHLORIDE 109 mEq/L (98-107); INDEX HEMOLYSI 1 (1-3); INDEX ICTERIC 1 (1-4); INDEX LIPEMIC 1 (1-3); POTASSIUM 4.1 mEq/L (3.5-5.1); SODIUM 141 mEq/L (136-145)
[2022-11-01 20:51] LABS: ALANINE AMINOTRANSFERASE 29 IU/L (13-61); ALBUMIN 3.1 g/dL (3.4-5.0); ASPARTATE AMINOTRANSFERASE 22 IU/L (15-37); BILIRUBIN TOTAL 0.2 mg/dL (0.1-1.0); CARBON DIOXIDE 31 mEq/L (21-32); CREATININE 0.8 mg/dL (0.6-1.3); GLUCOSE 115 mg/dL (70-105); PROTEIN TOTAL 6.6 g/dL (6.0-8.3); UREA NITROGEN BLOOD 15 mg/dL (7-21)
[2022-11-02] MEDS: CARISOPRODOL 350 MG TABLET PO SCH ×3 (02:00→17:58)
[2022-11-02] MEDS: GABAPENTIN 300MG CAPSULE PO SCH ×3 (07:00→21:52)
[2022-11-02] MEDS: CEFTRIAXONE 1,000 MG in DEXTROSE 5% WATER 50 ML IV SCH (07:00)
[2022-11-02] MEDS: VERAPAMIL HCL 80 MG TABLET PO SCH ×3 (07:00→21:51)
[2022-11-02 07:32] LABS: BASOPHILS % 0.5 % (0.0-2.0); EOSINOPHILS % 1.6 % (0.0-5.0); HEMATOCRIT. 36.7 % (36.0-48.0); HEMOGLOBIN. 11.8 g/dL (12.0-16.0); MEAN CORPUSCULAR HEMOGLOBIN 27.6 pg (28.0-32.0); MEAN CORPUSCULAR HGB CONC 32.1 g/dL (31.0-37.0); MEAN CORPUSCULAR VOLUME 85.9 fL (81.0-99.0); MEAN PLATELET VOLUME 9.6 fl (7.4-10.4); MONOCYTES % 6.6 % (2.0-8.0); NEUTROPHILS % 33.3 % (40.0-76.0); PLATELET 225 x1000/uL (130-400); RED BLOOD CELL COUNT 4.27 mill/uL (4.2-5.4); WHITE BLOOD COUNT 4.9 x1000/uL (4.5-11.0)
[2022-11-02 07:35] LABS: CHLORIDE 112 mEq/L (98-107); INDEX HEMOLYSI 1 (1-3); INDEX ICTERIC 1 (1-4); INDEX LIPEMIC 1 (1-3); SODIUM 143 mEq/L (136-145)
[2022-11-02 07:53] LABS: ALANINE AMINOTRANSFERASE 27 IU/L (13-61); ALBUMIN 2.9 g/dL (3.4-5.0); ASPARTATE AMINOTRANSFERASE 16 IU/L (15-37); BILIRUBIN TOTAL 0.4 mg/dL (0.1-1.0); CALCIUM 8.3 mg/dL (8.5-10.1); CARBON DIOXIDE 30 mEq/L (21-32); CREATININE 0.7 mg/dL (0.6-1.3); GLUCOSE 88 mg/dL (70-105); IRON 53 ug/dL (50-175); PROTEIN TOTAL 6.2 g/dL (6.0-8.3); TOTAL IRON BINDING CAPACITY 226 ug/dL (250-450); UREA NITROGEN BLOOD 11 mg/dL (7-21)
[2022-11-02 08:00] VITALS: BP 163/64; PULSE 78; RESP 18; TEMP 97.8
[2022-11-02] MEDS: POLYETHYLENE GLYCOL 3350 (17GM) 1 DOSE PACK PO SCH (09:00)
[2022-11-02] MEDS: FERROUS SULFATE 325MG TABLET PO SCH ×3 (09:20→17:58)
[2022-11-02] MEDS: DOCUSATE SODIUM 100MG CAPSULE PO SCH ×2 (09:20→17:58)
[2022-11-02] MEDS: FOLIC ACID 1MG TABLET PO SCH (09:20)
[2022-11-02] MEDS: ASPIRIN 81MG EC TABLET PO SCH (09:20)
[2022-11-02 09:21] LABS: VITAMIN B12 SERUM 749 pg/mL (211-911)
[2022-11-02] MEDS: ENOXAPARIN 40MG/0.4ML SYR SUBCUT SCH (09:21)
[2022-11-02] MEDS: DICLOFENAC SODIUM 1% GEL 50GM TOP SCH ×4 (09:29→21:52)
[2022-11-02 17:40] LABS: FERRITIN 99 ng/mL (10-291)
[2022-11-02 20:00] VITALS: BP 176/63; PULSE 74; RESP 18; TEMP 97.3
[2022-11-02] MEDS: ZOLPIDEM TARTRATE 5MG TABLET PO PRN (22:59)
[2022-11-03] MEDS: CARISOPRODOL 350 MG TABLET PO SCH ×3 (02:03→17:34)
[2022-11-03] MEDS: VERAPAMIL HCL 80 MG TABLET PO SCH ×3 (05:34→21:52)
[2022-11-03] MEDS: CEFTRIAXONE 1,000 MG in DEXTROSE 5% WATER 50 ML IV SCH (05:34)
[2022-11-03] MEDS: GABAPENTIN 300MG CAPSULE PO SCH ×3 (05:34→21:53)
[2022-11-03] MEDS: HYDROCODONE/ACETAMINOPHEN 10/325MG TABLET PO PRN (08:45)
[2022-11-03] MEDS: FERROUS SULFATE 325MG TABLET PO SCH ×3 (09:00→17:33)
[2022-11-03] MEDS: DICLOFENAC SODIUM 1% GEL 50GM TOP SCH ×3 (09:00→21:40)
[2022-11-03] MEDS: DOCUSATE SODIUM 100MG CAPSULE PO SCH ×2 (11:47→17:34)
[2022-11-03] MEDS: ASPIRIN 81MG EC TABLET PO SCH (11:47)
[2022-11-03] MEDS: FOLIC ACID 1MG TABLET PO SCH (11:47)
[2022-11-03] MEDS: POLYETHYLENE GLYCOL 3350 (17GM) 1 DOSE PACK PO SCH (11:49)
[2022-11-03] MEDS: ENOXAPARIN 40MG/0.4ML SYR SUBCUT SCH (11:49)
[2022-11-03 20:00] VITALS: BP 129/66; PULSE 95; RESP 18; TEMP 97.9
[2022-11-03] MEDS ORDERED: LORAZEPAM 0.5MG TABLET PO NR (21:45)
[2022-11-03] MEDS: ZOLPIDEM TARTRATE 5MG TABLET PO PRN (23:48)
[2022-11-04] MEDS: CARISOPRODOL 350 MG TABLET PO SCH ×3 (02:00→18:41)
[2022-11-04] MEDS: VERAPAMIL HCL 80 MG TABLET PO SCH ×3 (06:33→21:33)
[2022-11-04] MEDS: GABAPENTIN 300MG CAPSULE PO SCH ×3 (06:34→21:32)
[2022-11-04 08:00] VITALS: BP 117/55; PULSE 68; RESP 18; TEMP 98.1
[2022-11-04] MEDS: DICLOFENAC SODIUM 1% GEL 50GM TOP SCH ×3 (09:00→17:00)
[2022-11-04] MEDS: DOCUSATE SODIUM 100MG CAPSULE PO SCH ×2 (09:19→18:41)
[2022-11-04] MEDS: ASPIRIN 81MG EC TABLET PO SCH (09:19)
[2022-11-04] MEDS: FOLIC ACID 1MG TABLET PO SCH (09:19)
[2022-11-04] MEDS: FERROUS SULFATE 325MG TABLET PO SCH ×3 (09:19→18:41)
[2022-11-04] MEDS: HYDROCODONE/ACETAMINOPHEN 10/325MG TABLET PO PRN (09:19)
[2022-11-04] MEDS: POLYETHYLENE GLYCOL 3350 (17GM) 1 DOSE PACK PO SCH (09:20)
[2022-11-04] MEDS: ENOXAPARIN 40MG/0.4ML SYR SUBCUT SCH (11:33)
[2022-11-04 20:14] VITALS: BP 137/65; PULSE 74; RESP 18; TEMP 97.1
[2022-11-04] MEDS: ZOLPIDEM TARTRATE 5MG TABLET PO PRN (21:31)
[2022-11-04] MEDS: PREGABALIN 75MG CAPSULE PO SCH (23:30)
[2022-11-04] MEDS: DICLOFENAC SODIUM 75MG DR (EC) TABLET PO SCH (23:35)
[2022-11-04] MEDS: HYDROXYCHLOROQUINE SULFATE 200MG TABLET PO SCH (23:35)
[2022-11-04] MEDS: PREDNISONE 10MG TABLET PO SCH (23:35)
[2022-11-04] MEDS: BUPROPION HCL 100MG SR TABLET PO SCH (23:36)
[2022-11-05] MEDS: CARISOPRODOL 350 MG TABLET PO SCH ×3 (02:00→16:21)
[2022-11-05] MEDS: GABAPENTIN 300MG CAPSULE PO SCH ×3 (06:05→22:02)
[2022-11-05] MEDS: VERAPAMIL HCL 80 MG TABLET PO SCH ×3 (06:06→22:09)
[2022-11-05] MEDS: POLYETHYLENE GLYCOL 3350 (17GM) 1 DOSE PACK PO SCH (07:38)
[2022-11-05] MEDS: DOCUSATE SODIUM 100MG CAPSULE PO SCH ×2 (07:39→16:22)
[2022-11-05] MEDS: FERROUS SULFATE 325MG TABLET PO SCH ×3 (07:40→16:23)
[2022-11-05] MEDS: FOLIC ACID 1MG TABLET PO SCH (07:42)
[2022-11-05] MEDS: BUPROPION HCL 100MG SR TABLET PO SCH (07:42)
[2022-11-05] MEDS: DICLOFENAC SODIUM 75MG DR (EC) TABLET PO SCH ×2 (07:42→22:02)
[2022-11-05] MEDS: PREGABALIN 75MG CAPSULE PO SCH ×2 (07:43→22:03)
[2022-11-05] MEDS: ASPIRIN 81MG EC TABLET PO SCH (07:43)
[2022-11-05] MEDS: PREDNISONE 10MG TABLET PO SCH ×2 (07:43→16:21)
[2022-11-05] MEDS: ENOXAPARIN 40MG/0.4ML SYR SUBCUT SCH (07:44)
[2022-11-05 08:00] VITALS: BP 117/50; PULSE 62; RESP 18; TEMP 97.7
[2022-11-05 08:20] LABS: INDEX HEMOLYSI 1 (1-3)
[2022-11-05 08:27] LABS: CREATINE KINASE 45 IU/L (26-192)
[2022-11-05] MEDS: HYDROXYCHLOROQUINE SULFATE 200MG TABLET PO SCH ×2 (08:53→16:21)
[2022-11-05] MEDS: HYDROCODONE/ACETAMINOPHEN 10/325MG TABLET PO PRN (12:19)
[2022-11-05 20:00] VITALS: BP 114/55; PULSE 86; RESP 22; TEMP 97.1
[2022-11-05] MEDS: ZOLPIDEM TARTRATE 5MG TABLET PO PRN (22:03)
[2022-11-06] MEDS: CARISOPRODOL 350 MG TABLET PO SCH ×3 (02:18→18:26)
[2022-11-06] MEDS: GABAPENTIN 300MG CAPSULE PO SCH ×3 (06:04→21:47)
[2022-11-06] MEDS: VERAPAMIL HCL 80 MG TABLET PO SCH ×3 (06:09→21:49)
[2022-11-06] MEDS: FOLIC ACID 1MG TABLET PO SCH (09:00)
[2022-11-06] MEDS: DOCUSATE SODIUM 100MG CAPSULE PO SCH ×2 (09:00→18:27)
[2022-11-06] MEDS: FERROUS SULFATE 325MG TABLET PO SCH ×3 (09:00→18:31)
[2022-11-06 09:06] LABS: G6PD RBC 3.93 x10E6/uL (3.77-5.28)
[2022-11-06] MEDS ORDERED: NALOXONE HCL 0.4MG/ML VIAL IV PRN (09:45)
[2022-11-06] MEDS: POLYETHYLENE GLYCOL 3350 (17GM) 1 DOSE PACK PO SCH (11:38)
[2022-11-06] MEDS: ENOXAPARIN 40MG/0.4ML SYR SUBCUT SCH (11:38)
[2022-11-06] MEDS: PREDNISONE 10MG TABLET PO SCH ×2 (11:39→18:27)
[2022-11-06] MEDS: BUPROPION HCL 100MG SR TABLET PO SCH (11:39)
[2022-11-06] MEDS: DICLOFENAC SODIUM 75MG DR (EC) TABLET PO SCH ×2 (11:40→22:09)
[2022-11-06] MEDS: ASPIRIN 81MG EC TABLET PO SCH (11:40)
[2022-11-06] MEDS: PREGABALIN 75MG CAPSULE PO SCH ×2 (11:40→21:47)
[2022-11-06] MEDS: HYDROXYCHLOROQUINE SULFATE 200MG TABLET PO SCH ×2 (11:40→18:27)
[2022-11-06] MEDS: HYDROCODONE/ACETAMINOPHEN 10/325MG TABLET PO PRN (16:13)
[2022-11-06 20:24] VITALS: BP 119/49; PULSE 71; RESP 22; TEMP 98.1
[2022-11-07] MEDS: ZOLPIDEM TARTRATE 5MG TABLET PO PRN ×2 (00:58→23:16)
[2022-11-07] MEDS: CARISOPRODOL 350 MG TABLET PO SCH ×3 (03:40→17:34)
[2022-11-07] MEDS ORDERED: METHOTREXATE SODIUM 2 . 5MG TABLET PO SCH ×7 (09:00→17:00)
[2022-11-07] MEDS: DOCUSATE SODIUM 100MG CAPSULE PO SCH ×2 (09:00→17:35)
[2022-11-07] MEDS: PREDNISONE 10MG TABLET PO SCH ×2 (09:03→17:35)
[2022-11-07] MEDS: PREGABALIN 75MG CAPSULE PO SCH ×2 (09:03→21:50)
[2022-11-07] MEDS: ENOXAPARIN 40MG/0.4ML SYR SUBCUT SCH (09:04)
[2022-11-07] MEDS: POLYETHYLENE GLYCOL 3350 (17GM) 1 DOSE PACK PO SCH (09:04)
[2022-11-07] MEDS: FERROUS SULFATE 325MG TABLET PO SCH ×3 (09:04→17:35)
[2022-11-07] MEDS: BUPROPION HCL 100MG SR TABLET PO SCH (09:04)
[2022-11-07] MEDS: ASPIRIN 81MG EC TABLET PO SCH (09:05)
[2022-11-07] MEDS: FOLIC ACID 1MG TABLET PO SCH (09:06)
[2022-11-07] MEDS: HYDROXYCHLOROQUINE SULFATE 200MG TABLET PO SCH ×2 (09:06→17:35)
[2022-11-07] MEDS: DICLOFENAC SODIUM 75MG DR (EC) TABLET PO SCH ×2 (09:06→21:52)
[2022-11-07] MEDS: VERAPAMIL HCL 80 MG TABLET PO SCH ×3 (13:18→21:53)
[2022-11-07] MEDS: GABAPENTIN 300MG CAPSULE PO SCH ×2 (14:00→21:51)
[2022-11-07 15:12] LABS: ACTIN (SMOOTH MUSCLE) ANTIBODY 3 Units (0-19)
[2022-11-07 20:00] VITALS: BP 141/62; PULSE 68; RESP 18; TEMP 97.5
[2022-11-08] MEDS: CARISOPRODOL 350 MG TABLET PO SCH ×3 (02:23→18:52)
[2022-11-08] MEDS: GABAPENTIN 300MG CAPSULE PO SCH ×3 (06:22→21:04)
[2022-11-08] MEDS: VERAPAMIL HCL 80 MG TABLET PO SCH ×3 (06:23→22:48)
[2022-11-08 07:54] LABS: CHLORIDE 113 mEq/L (98-107); INDEX HEMOLYSI 1 (1-3); INDEX ICTERIC 1 (1-4); INDEX LIPEMIC 1 (1-3); POTASSIUM 4.4 mEq/L (3.5-5.1); SODIUM 143 mEq/L (136-145)
[2022-11-08 08:00] VITALS: BP 135/71; PULSE 68; RESP 18; TEMP 97.6
[2022-11-08 08:03] LABS: CALCIUM 8.3 mg/dL (8.5-10.1); CARBON DIOXIDE 28 mEq/L (21-32); CREATININE 0.7 mg/dL (0.6-1.3); GLUCOSE 94 mg/dL (70-105); PHOSPHORUS 3.6 mg/dL (2.5-4.9); UREA NITROGEN BLOOD 12 mg/dL (7-21)
[2022-11-08] MEDS: DICLOFENAC SODIUM 75MG DR (EC) TABLET PO SCH ×2 (09:00→21:02)
[2022-11-08] MEDS: ENOXAPARIN 40MG/0.4ML SYR SUBCUT SCH (09:00)
[2022-11-08] MEDS: DOCUSATE SODIUM 100MG CAPSULE PO SCH ×2 (09:21→17:10)
[2022-11-08] MEDS: FOLIC ACID 1MG TABLET PO SCH (09:21)
[2022-11-08] MEDS: PREGABALIN 75MG CAPSULE PO SCH ×2 (09:21→21:02)
[2022-11-08] MEDS: PREDNISONE 10MG TABLET PO SCH ×2 (09:21→17:10)
[2022-11-08] MEDS: ASPIRIN 81MG EC TABLET PO SCH (09:21)
[2022-11-08] MEDS: HYDROXYCHLOROQUINE SULFATE 200MG TABLET PO SCH ×2 (09:21→17:00)
[2022-11-08] MEDS: BUPROPION HCL 100MG SR TABLET PO SCH (09:21)
[2022-11-08] MEDS: FERROUS SULFATE 325MG TABLET PO SCH ×3 (09:21→17:10)
[2022-11-08] MEDS: POLYETHYLENE GLYCOL 3350 (17GM) 1 DOSE PACK PO SCH (09:22)
[2022-11-08 12:17] LABS: BASOPHILS % 0.2 % (0.0-2.0); EOSINOPHILS % 0.1 % (0.0-5.0); HEMATOCRIT. 32.2 % (36.0-48.0); HEMOGLOBIN. 10.4 g/dL (12.0-16.0); LYMPHOCYTES % 32.2 % (20.0-50.0); MEAN CORPUSCULAR HEMOGLOBIN 27.8 pg (28.0-32.0); MEAN CORPUSCULAR HGB CONC 32.2 g/dL (31.0-37.0); MEAN CORPUSCULAR VOLUME 86.2 fL (81.0-99.0); MEAN PLATELET VOLUME 9.3 fl (7.4-10.4); MONOCYTES % 6.6 % (2.0-8.0); NEUTROPHILS % 60.9 % (40.0-76.0); PLATELET 233 x1000/uL (130-400); RED BLOOD CELL COUNT 3.74 mill/uL (4.2-5.4); RED CELL DISTRIBUTION WIDTH 15.6 % (11.6-14.6); WHITE BLOOD COUNT 7.8 x1000/uL (4.5-11.0)
[2022-11-08] MEDS: HYDROCODONE/ACETAMINOPHEN 10/325MG TABLET PO PRN (14:04)
[2022-11-08 20:11] VITALS: BP 128/68; PULSE 75; RESP 20; TEMP 97.6
[2022-11-08] MEDS: ZOLPIDEM TARTRATE 5MG TABLET PO PRN (22:48)
[2022-11-09] MEDS: CARISOPRODOL 350 MG TABLET PO SCH ×3 (02:42→18:24)
[2022-11-09] MEDS: GABAPENTIN 300MG CAPSULE PO SCH ×3 (06:21→21:50)
[2022-11-09] MEDS: VERAPAMIL HCL 80 MG TABLET PO SCH ×3 (06:24→23:39)
[2022-11-09 08:00] VITALS: BP 141/54; PULSE 64; RESP 18; TEMP 97.2
[2022-11-09] MEDS: POLYETHYLENE GLYCOL 3350 (17GM) 1 DOSE PACK PO SCH (09:20)
[2022-11-09] MEDS: BUPROPION HCL 100MG SR TABLET PO SCH (09:20)
[2022-11-09] MEDS: DICLOFENAC SODIUM 75MG DR (EC) TABLET PO SCH ×2 (09:21→21:50)
[2022-11-09] MEDS: PREGABALIN 75MG CAPSULE PO SCH ×2 (09:22→21:50)
[2022-11-09] MEDS: DOCUSATE SODIUM 100MG CAPSULE PO SCH ×2 (09:22→18:24)
[2022-11-09] MEDS: PREDNISONE 10MG TABLET PO SCH ×2 (09:23→18:23)
[2022-11-09] MEDS: ASPIRIN 81MG EC TABLET PO SCH (09:23)
[2022-11-09] MEDS: FOLIC ACID 1MG TABLET PO SCH ×2 (09:27→09:32)
[2022-11-09] MEDS: ENOXAPARIN 40MG/0.4ML SYR SUBCUT SCH (09:27)
[2022-11-09] MEDS: FERROUS SULFATE 325MG TABLET PO SCH ×3 (09:32→18:24)
[2022-11-09] MEDS: HYDROXYCHLOROQUINE SULFATE 200MG TABLET PO SCH ×2 (09:41→17:00)
[2022-11-09 10:11] LABS: ALDOLASE 4.9 U/L (3.3-10.3); ANGIOTENSION CONVERTING ENZYME 29 U/L (14-82)
[2022-11-09] MEDS: HYDROCODONE/ACETAMINOPHEN 10/325MG TABLET PO PRN (16:03)
[2022-11-09 17:06] LABS: ANTI-MYELOPEROXIDASE AB < 0.2 units (0.0-0.9); ANTI-PROTEINASE 3 ABS < 0.2 units (0.0-0.9)
[2022-11-09 19:09] LABS: ANA IFA Negative (.)
[2022-11-09 20:00] VITALS: BP 108/43; PULSE 67; RESP 18; TEMP 98.7
[2022-11-09] MEDS: ZOLPIDEM TARTRATE 5MG TABLET PO PRN (23:39)
[2022-11-09] MEDS: ACETAMINOPHEN 325MG TABLET PO PRN (23:44)
[2022-11-10] MEDS: CARISOPRODOL 350 MG TABLET PO SCH ×3 (02:43→17:05)
[2022-11-10] MEDS: GABAPENTIN 300MG CAPSULE PO SCH ×3 (06:22→21:17)
[2022-11-10] MEDS: VERAPAMIL HCL 80 MG TABLET PO SCH ×3 (06:26→21:17)
[2022-11-10 08:00] VITALS: BP 126/66; PULSE 65; RESP 20; TEMP 97.9
[2022-11-10] MEDS: POLYETHYLENE GLYCOL 3350 (17GM) 1 DOSE PACK PO SCH (08:45)
[2022-11-10] MEDS: ENOXAPARIN 40MG/0.4ML SYR SUBCUT SCH (08:46)
[2022-11-10] MEDS: DICLOFENAC SODIUM 75MG DR (EC) TABLET PO SCH ×2 (08:47→21:17)
[2022-11-10] MEDS: PREGABALIN 75MG CAPSULE PO SCH ×2 (08:47→21:17)
[2022-11-10] MEDS: BUPROPION HCL 100MG SR TABLET PO SCH (08:47)
[2022-11-10] MEDS: DOCUSATE SODIUM 100MG CAPSULE PO SCH ×2 (08:48→16:09)
[2022-11-10] MEDS: HYDROXYCHLOROQUINE SULFATE 200MG TABLET PO SCH ×2 (08:48→16:09)
[2022-11-10] MEDS: FERROUS SULFATE 325MG TABLET PO SCH ×3 (08:48→16:09)
[2022-11-10] MEDS: ASPIRIN 81MG EC TABLET PO SCH (08:48)
[2022-11-10] MEDS: PREDNISONE 10MG TABLET PO SCH ×2 (08:48→17:18)
[2022-11-10 13:07] LABS: ATYPICAL P-ANCA <1:20 titer (Neg:<1:20); CYTOPLASMIC C-ANCA <1:20 titer (Neg:<1:20); PERINUCLEAR P-ANCA <1:20 titer (Neg:<1:20)
[2022-11-10] MEDS: ACETAMINOPHEN 325MG TABLET PO PRN (13:24)
[2022-11-10 15:10] LABS: G6PD QUANTITATIVE 294 (127-427)
[2022-11-10 20:00] VITALS: BP 141/60; PULSE 76; RESP 18; TEMP 97.1
[2022-11-10] MEDS: ZOLPIDEM TARTRATE 5MG TABLET PO PRN (23:10)
[2022-11-11] MEDS: CARISOPRODOL 350 MG TABLET PO SCH ×2 (02:11→10:16)
[2022-11-11] MEDS: GABAPENTIN 300MG CAPSULE PO SCH (06:10)
[2022-11-11] MEDS: VERAPAMIL HCL 80 MG TABLET PO SCH ×2 (06:11→13:46)
[2022-11-11] MEDS: DICLOFENAC SODIUM 75MG DR (EC) TABLET PO SCH (09:00)
[2022-11-11] MEDS: PREGABALIN 75MG CAPSULE PO SCH (10:08)
[2022-11-11] MEDS: BUPROPION HCL 100MG SR TABLET PO SCH (10:08)
[2022-11-11] MEDS: POLYETHYLENE GLYCOL 3350 (17GM) 1 DOSE PACK PO SCH (10:08)
[2022-11-11] MEDS: DOCUSATE SODIUM 100MG CAPSULE PO SCH (10:08)
[2022-11-11] MEDS: ASPIRIN 81MG EC TABLET PO SCH (10:09)
[2022-11-11] MEDS: FOLIC ACID 1MG TABLET PO SCH (10:09)
[2022-11-11] MEDS: FERROUS SULFATE 325MG TABLET PO SCH ×2 (10:09→13:47)
[2022-11-11] MEDS: HYDROXYCHLOROQUINE SULFATE 200MG TABLET PO SCH (10:09)
[2022-11-11] MEDS: PREDNISONE 10MG TABLET PO SCH (10:10)
[2022-11-11] MEDS: ENOXAPARIN 40MG/0.4ML SYR SUBCUT SCH (10:17)
[2022-11-11 11:01] VITALS: BP 117/71; PULSE 91; TEMP 98; O2SAT 96
[2022-11-11 13:46] VITALS: PULSE 91
[2022-11-11] MEDS ORDERED: PNEUMOCOCCAL 23-VAL P-SAC VAC 0.5 ML IM ONE (14:30)
[2022-11-11] MEDS ORDERED: INFLUENZA VACCINE 05/PF 0.5 ML SYRINGE IM ONE (14:30)
[2022-11-12] MEDS ORDERED: PREDNISONE 10MG TABLET PO SCH (09:00)
== END 2022-11-11 15:25 | disposition home health service (06) | DRG 551 ==
PROVIDERS: ADMIT Physical Medicine & Rehabilitation Spinal Cord Injury Medicine; ATTEND Internal Medicine Nephrology
PROC: 3E0U33Z Introduction of Anti-inflammatory into Joints, Percutaneous Approach (ICD-10-PCS; principal; 2022-11-04)
PROC: 3E0U3BZ Introduction of Anesthetic Agent into Joints, Percutaneous Approach (ICD-10-PCS; 2022-11-04)
DX: M50.10 Cervical disc disorder with radiculopathy, unspecified cervical region (principal); G82.50 Quadriplegia, unspecified; E44.1 Mild protein-calorie malnutrition; F33.1 Major depressive disorder, recurrent, moderate; M51.36 Other intervertebral disc degeneration, lumbar region; M48.02 Spinal stenosis, cervical region; G62.9 Polyneuropathy, unspecified; M50.20 Other cervical disc displacement, unspecified cervical region; E78.5 Hyperlipidemia, unspecified; E87.6 Hypokalemia; I10 Essential (primary) hypertension; M06.9 Rheumatoid arthritis, unspecified; Z91.81 History of falling; R26.9 Unspecified abnormalities of gait and mobility; R73.9 Hyperglycemia, unspecified; E66.9 Obesity, unspecified; M79.7 Fibromyalgia; K44.9 Diaphragmatic hernia without obstruction or gangrene; R53.81 Other malaise; R07.89 Other chest pain; D63.8 Anemia in other chronic diseases classified elsewhere; M75.21 Bicipital tendinitis, right shoulder; M21.371 Foot drop, right foot; M77.9 Enthesopathy, unspecified; F41.9 Anxiety disorder, unspecified; M13.0 Polyarthritis, unspecified; Z81.8 Family history of other mental and behavioral disorders; Z82.49 Family history of ischemic heart disease and other diseases of the circulatory system; Z68.25 Body mass index [BMI] 25.0-25.9, adult
CPT/HCPCS: 36415; 72148; 80048; 80053; 82085; 82164; 82306; 82550; 82607; 82728; 82746; 82955; 83036; 83520; 83540; 83550; 83735; 84100; 84443; 85025; 85041; 86200; 86256; 86431; 90686; 90732; 92523; 93970; 97110; 97116; 97150; 97162; 97166; 97530; 97535; 97542; J0696; J1650; J7060; J7512; J8610